=== PATIENT | female | born 1980 | race Caucasian/White ===

== ENCOUNTER 2021-10-05 15:46 | Emergency (ER) | payer OTHER ==
[~2021-10-05] VITALS: Ht 167.6 cm; Wt 90.7 kg
[2021-10-05 15:56] VITALS: BP 131/68
[2021-10-05] MEDS ORDERED: NURTEC ODT75 MG PO (16:02)
[2021-10-05] MEDS ORDERED: UBRELVY50 MG PO (16:02)
== END 2021-10-05 18:50 | disposition home or self-care (01) ==
LOC: ER 15:46
DX: G43.909 Migraine, unspecified, not intractable, without status migrainosus (principal); R50.9 Fever, unspecified; Z79.899 Other long term (current) drug therapy; Z88.2 Allergy status to sulfonamides